=== PATIENT | male | born 1965 | race Caucasian/White ===

== ENCOUNTER 2020-03-05 07:44 | Day surgery (SDC) | payer BC, OTHER ==
[~2020-03-05] VITALS: Ht 172.7 cm; Wt 89.2 kg
[~2020-03-05 07:44] MED LIST: ASPI325EC PO; DRON400T; MULT50L; OMEGA DHA92 MG; Omega 3 1,0001 EACH; Prinivil10 MG PO; Toprol Xl25 MG PO; VITAMIN D32000 UNIT
--- NOTE | 2020-03-05 10:18 | NUR ---
PT BACK TO RECOVERY ROOM VIA RECLINER AFTER PROCEDURE. REPORT FROM DIMPLE GONZALEZ. PT ALER, ORIENTED, DENIES PAIN OR DISCOMFORT. VSS, CALL LIGHT IN REACH. RIGHT RADIAL SITE SOFT, NON-TENDER. NO BLEEDING OR SWELLING NOTED.
--- NOTE | 2020-03-05 11:34 | NUR ---
PT EATING LUNCH, DENIES NEEDS. VAA, CALL LIGHT IN REACH. RIGHT RADIAL SITE REMAINS CLEAN, DRY, AND INTACT. TR BAND AND SPLINT IN PLACE.
--- NOTE | 2020-03-05 12:08 | NUR ---
RIGHT RADIAL TR BAND HAS BEEN FULLY DEFLATED. PT WAITING TO HAVE ZIO PATCH MONITOR PLACED. DENIES PAIN OR DISCOMFORT.
[2020-03-05] MEDS ORDERED: ELIQUIS5 MG PO (12:09)
--- NOTE | 2020-03-05 12:45 | NUR ---
IV DC'D, CATH INTACT. PT VERBALIZED UNDERSTANDING OF DC INSTRUCTIONS AND RX. OUT TO CAR VIA WHEELCHAIR, WILL FOLLOW UP WITH DR ESTRADA SCHEDULED.
== END 2020-03-05 12:45 | disposition home or self-care (01) ==
LOC: MHTC 07:44
DX: I20.8 Other forms of angina pectoris (principal); I48.0 Paroxysmal atrial fibrillation; E78.5 Hyperlipidemia, unspecified; G47.33 Obstructive sleep apnea (adult) (pediatric); R00.1 Bradycardia, unspecified; I10 Essential (primary) hypertension; I48.3 Typical atrial flutter; I25.10 Atherosclerotic heart disease of native coronary artery without angina pectoris; Z79.01 Long term (current) use of anticoagulants; Z91.19 Patient's noncompliance with other medical treatment and regimen; Z79.899 Other long term (current) drug therapy; Z79.82 Long term (current) use of aspirin
CPT/HCPCS: 76937; 93246; 93458; 99152; C1769; C1894; J1644; J2250; J3010; J7030; J7050; Q9967

== ENCOUNTER 2021-05-24 06:14 | Day surgery (SDC) | payer BC, OTHER ==
[~2021-05-24] VITALS: Ht 172.7 cm; Wt 88.5 kg
[~2021-05-24 06:14] MED LIST changes: +ELIQUIS5 MG PO
--- NOTE | 2021-05-24 08:04 | NUR ---
05/24/21 0804 Blake Casillas 1 MG EPI ADDED TO THE FIRST BAG OF LR [facility]. BUPIVACAINE 0.5% 30 MLS MIXED W/ EPI 0.15 ML TO MAKE BUPIVACAINE 0.5% 1:200,000 FOR INJECTION AT [facility] BY DR MCMILLAN.
== END 2021-05-24 10:29 | disposition home or self-care (01) ==
LOC: ORSCSDS 06:14
PROVIDERS: Orthopaedic Surgery
PROC: 0SBD4ZZ Excision of Left Knee Joint, Percutaneous Endoscopic Approach (ICD-10-PCS; principal; 2021-05-24 07:30)
DX: S83.242A Other tear of medial meniscus, current injury, left knee, initial encounter (principal); M94.262 Chondromalacia, left knee; Z79.82 Long term (current) use of aspirin; Z79.899 Other long term (current) drug therapy; Z79.01 Long term (current) use of anticoagulants
CPT/HCPCS: J0171; J0690; J1100; J2250; J2405; J2704; J3010; J7120

== ENCOUNTER 2023-01-23 10:31 | Day surgery (SDC) | payer BC, OTHER ==
[~2023-01-23] VITALS: Ht 172.7 cm; Wt 86.2 kg
[2023-01-23] VITALS (16 sets, daily range): BP systolic 106–151; BP diastolic 58–92
[~2023-01-23 10:31] MED LIST changes: +ATOR10 PO; +OMEP20ER PO
--- NOTE | 2023-01-23 16:55 | NUR ---
Patient up to Ambulate with standby assistance. pt tolerating food and water well. pain is reported as tolerable. Discharge instructions reviewed with patient. Patient verbalizes understanding. Copy given to patient to take home. ALSO PRESENT FOR DISCHARGE INSTRUCTIONS. SURGICAL SKIN ADHESIVE to procedure site clean, dry, intact with no visible drainage, swelling, erythema or bruising noted. Discharged via wheelchair to private car for ride home TO . PRESCRIPTION WAS SENT ELECTRONICALLY TO PHARMACY.
== END 2023-01-23 16:59 | disposition home or self-care (01) ==
LOC: ORSCMMR 10:31 → ORD 12:15 → ORSCMMR 16:59
PROVIDERS: Surgery
PROC: 8E0W4CZ Robotic Assisted Procedure of Trunk Region, Percutaneous Endoscopic Approach (ICD-10-PCS; principal; 2023-01-23 12:15)
PROC: 0YUA4JZ Supplement Bilateral Inguinal Region with Synthetic Substitute, Percutaneous Endoscopic Approach (ICD-10-PCS; principal; 2023-01-23 12:15)
DX: K40.20 Bilateral inguinal hernia, without obstruction or gangrene, not specified as recurrent (principal); I10 Essential (primary) hypertension; K21.9 Gastro-esophageal reflux disease without esophagitis; I48.91 Unspecified atrial fibrillation; Z79.899 Other long term (current) drug therapy
CPT/HCPCS: A9270; C1781; J0690; J1100; J2250; J2371; J2405; J2704; J3010; J7120

== ENCOUNTER 2024-08-15 07:06 | Day surgery (SDC) | payer BC, OTHER ==
[~2024-08-15] VITALS: Ht 172.7 cm; Wt 90.9 kg
[2024-08-15] MEDS ORDERED: ASPI81CH PO (07:29)
[2024-08-15 07:39] VITALS: BP 128/83
[2024-08-15] MEDS ORDERED: Heparin Sodium 1000 Units/ML 10ML MDV ONE (07:44)
[2024-08-15] MEDS ORDERED: NS 250 ML IV ONE (07:44)
[2024-08-15] MEDS ORDERED: NS 1,000 ML IV ONE ×2 (07:44→07:50)
[2024-08-15] MEDS ORDERED: Verapamil HCL 2.5 MG/ML 2ML Injection ONE (07:44)
[2024-08-15] MEDS ORDERED: Nitroglycerin 2 MG/20 ML BTL ONE (07:45)
[2024-08-15] MEDS ORDERED: FentaNYL Citrate 50 MCG/ML 2 ML Injection ONE (08:18)
[2024-08-15] MEDS ORDERED: Midazolam HCl 1MG / ML 2ML Vial ONE (08:18)
[2024-08-15 09:02] VITALS: BP 120/80
[2024-08-15 09:15] VITALS: BP 126/89
[2024-08-15 09:30] VITALS: BP 111/83
[2024-08-15 09:45] VITALS: BP 116/69
[2024-08-15 10:00] VITALS: BP 125/78
--- NOTE | 2024-08-15 10:00 | NUR ---
10CC AIR REMOVED FROM R WRIST TR BAND. NEG BLEEDING OR SWELLING.
--- NOTE | 2024-08-15 10:45 | NUR ---
R WRIST TR BAND REMOVED AND CLOTH DOT DRSG PLACED. IV REMOVED. PT AND VERBALIZED UNDERSTANDING OF WRITTEN AND VERBAL D/C INST. PT TAKEN OUT OF THE HRT CENTER VIA W/C.
== END 2024-08-15 13:00 | disposition home or self-care (01) ==
LOC: MHTC 07:06
DX: R07.9 Chest pain, unspecified (principal); I25.10 Atherosclerotic heart disease of native coronary artery without angina pectoris; I48.0 Paroxysmal atrial fibrillation; I10 Essential (primary) hypertension; E78.5 Hyperlipidemia, unspecified; G47.33 Obstructive sleep apnea (adult) (pediatric); K21.9 Gastro-esophageal reflux disease without esophagitis; Z79.82 Long term (current) use of aspirin; Z79.899 Other long term (current) drug therapy
CPT/HCPCS: 76937; 93458; 99152; C1769; C1887; C1894; J1644; J2250; J3010; J7030; J7050; Q9967

== ENCOUNTER 2024-10-03 11:14 | Day surgery (SDC) | payer BC, OTHER ==
[~2024-10-03] VITALS: Ht 172.7 cm; Wt 87.6 kg
[~2024-10-03 11:14] MED LIST changes: +ASPI81CH PO; +Lidocaine HCl 2% 10 ML SDA ONE; +NS 500 ML IV ONE
[2024-10-03] MEDS ORDERED: ISOSORBIDE MONO30 MG PO (11:45)
[2024-10-03] MEDS ORDERED: FOCUS FACTOR (11:46)
[2024-10-03] MEDS ORDERED: [UNRECOGNIZED DRUG - OTHER] (11:47)
[2024-10-03] MEDS ORDERED: ZINC15 (11:48)
[2024-10-03] MEDS ORDERED: MAGNESIUM GLYC120 M1 (11:49)
[2024-10-03] MEDS ORDERED: MSM1000 M3 (11:50)
[2024-10-03] MEDS ORDERED: FISH OIL 1,0001 EA10 (11:50)
[2024-10-03] MEDS ORDERED: GLUC500 (11:50)
[2024-10-03] MEDS ORDERED: NS 500 ML IV ONE (12:00)
[2024-10-03] MEDS ORDERED: CeFAZolin Sodium 2,000 MG VIAL ONE (12:07)
[2024-10-03] MEDS ORDERED: Midazolam HCl 1MG / ML 2ML Vial ONE (12:38)
[2024-10-03 13:07] VITALS: BP 107/63
--- NOTE | 2024-10-03 13:53 | NUR ---
10/03/24 1353 Navjot Nobles PT DENIES PAIN AND NAUSEA AT THIS TIME. PT AGREEABLE TO D/C HOME WITH SPOUSE JANUSZ.
== END 2024-10-03 13:52 | disposition home or self-care (01) ==
LOC: ORSCSDS 11:14
PROVIDERS: Orthopaedic Surgery
PROC: 0LN70ZZ Release Right Hand Tendon, Open Approach (ICD-10-PCS; principal; 2024-10-03 13:00)
PROC: 0RBW0ZZ Excision of Right Finger Phalangeal Joint, Open Approach (ICD-10-PCS; principal; 2024-10-03 13:00)
PROC: 0JBJ0ZX Excision of Right Hand Subcutaneous Tissue and Fascia, Open Approach, Diagnostic (ICD-10-PCS; principal; 2024-10-03 13:00)
DX: M65.331 Trigger finger, right middle finger (principal); M67.441 Ganglion, right hand; M19.041 Primary osteoarthritis, right hand; I10 Essential (primary) hypertension; G47.33 Obstructive sleep apnea (adult) (pediatric); I48.91 Unspecified atrial fibrillation; E78.5 Hyperlipidemia, unspecified; Z79.899 Other long term (current) drug therapy
CPT/HCPCS: 88304; J0690; J2003; J2250; J2704; J7040